=== PATIENT | male | born 1970 | race Two or more races ===

== ENCOUNTER 2024-09-25 04:40 | Emergency (ER) | payer MEDICAID, OTHER ==
[~2024-09-25] VITALS: Ht 167.6 cm; Wt 50.0 kg
[2024-09-25] MEDS ORDERED: GLUCAGON EMERG KIT 1mg/1ml ONE (04:44)
[2024-09-25 04:45] VITALS: BP 0/0; PULSE 0; RESP 0; TEMP 93.9; O2SAT 0
--- NOTE | 2024-09-25 04:53 | ED.PDOC ---
CPR-HPI HPI Comments 54 year old male was BIBA for the c/c of a Cardiac Arrest. Per EMS pt was at home with family when he experiencing a syncopal episode. EMS states that CPR started at 3:33am. Patient was found to hypoglycemic. ACLS protocols were continued by EMS in route to the emergency department. Pt arrived her at [facility] at 4:37am. ACLS protocols were continued on arrival to the emergency department. Chief Complaint: CPR Time Seen by MD: 04:46 Reviewed Notes: Nurses Notes, Technology Specialist Notes, Medications, Allergies Allergies: Coded Allergies: UNOBTAINABLE (Unverified , 09/25/24) UNRESPONSIVE Information Source: Emergency Med Personnel Mode of Arrival: EMS Timing: Hours Onset: Witnessed Available Hx: Unknown Inital rhythm: Undetermined Treatment: CPR, Epinephrine Response: No response Associated signs and symptoms: Unknown Vital Signs Vital Signs Date Time Temp Pulse Resp B/P (MAP) Pulse Ox O2 Delivery O2 Flow Rate FiO2 09/25/24 04:45 93.9 0 0 0/0 (0) 0 93.9 Physical Exam General: Patient is unresponsive HEENT: Pupils fixed, dilated, nonreactive. There is no corneal reflex. Cardiac: No heart sounds auscultated, no pulses palpated Abdomen: Abdomen is distended and rigid Respiratory: No spontaneous respirations, no breath sounds auscultated Neuro: GCS 3, patient is unresponsive to painful stimulus, Review of Systems: Unable to obtain due to patient unresponsive Past Medical History PAST MEDICAL HISTORY: [place] Was a procedure done? Was a procedure done?: No Differential Dx CPR Differential Diagnosis: Cardiopulmonary arrest, Electrolyte disorder, Heart Block, Myocardial Infarction, Pneumothorax, Respiratory Failure, Ruptured Aortic Aneurysm X-Ray, Labs, Meds, VS Vital Signs Date Time Temp Pulse Resp B/P (MAP) Pulse Ox O2 Delivery O2 Flow Rate FiO2 09/25/24 04:45 93.9 0 0 0/0 (0) 0 93.9 Time of 1ST Reevaluation: 04:43 Reevaluation 1ST: Unchanged Patient Education/Counseling: Pt Unresponsive Family Education/Counseling: No Family Present Departure 1 Departure Time of Disposition: 04:43 Impression: Primary Impression: Cardiac arrest Disposition: 20 Condition: Other Comments 54-year-old male arrived to the emergency department in cardiac arrest with over one hour of downtime and unsecured airway prior to arrival to the emergency department. Cardiac compressions were performed by staff in order to sustain blood flow. The patient was ventilated and oxygenated. The patient received appropriate ACLS measures and these were repeated as necessary throughout the resuscitation. CPR was performed under my direct supervision and guidance. See patient resuscitation status note for medications and times given. After discontinuation of resuscitation, I did not observe spontaneous breathing or appreciate heart sounds on auscultation. There was no palpable radial pulse. The patient did not respond to nail bed stimuli. I examined the patient and there was no pupillary response to light. Patient was pronounced . TOD: 0443 Critical Care Note Critical Care Time?: No Heart Score Heart Score: Heart Score Response (Comments) Value History N/A 0 EKG N/A 0 Age N/A 0 Risk Factors N/A 0 Troponin N/A 0 Total 0 Stability Stability form required: No I personally scribed for BEVERLEY MERCADO MD ([email or web address]) on 09/25/24 at 04:53. Electronically submitted by Jordy Chance ([email or web address]). BEVERLEY MERCADO MD Sep 25, 2024 04:53
--- NOTE | 2024-09-25 05:34 | RESUS ---
CODE BLUE ASSESSSMENT History of Events History of Events: Pt came in with manual CPR in progress. Per EMS, pt was found unresponsive by family at 0315 with bystander CPR initiated at 0333 by SO that arrived on scene. Initial rhythm was PEA but has remained in aystole throughout transport. Pt has IO to L proximal tibia; has received EPI x7 rounds, 10mL Calcium, 1 amp bicarb. Pt's blood sugar 38, has received 50g D10. Approx downtime 1hr 22mins; 1 hr 4mins of CPR performed. Initial Information Date: Sep 25, 2024 Time: 04:37 Location of Arrest: In Field Arrest Witnessed: Yes (by family) CPR started initial time: 03:33 CPR started by whom: Bystander (SO) Last seen well: 020 Pre-Hospital Care: ACLS Type of arrest: Cardiac, Respiratory, Adult, Unwitnessed Spontaneous Respirations: No Monitoring: ECG, Pulse Oximetry Crash Cart Opened and Supplies: Yes Airway Ventilation Breathing at Onset: Assisted Oxygen Delivery Method: Ambu-Bag Artificial Ventilation: Bag/Mask Comments: Pt not intubated during transport Circulation Circulation #1: Time: 04:37 Pulse Rate (adult): 0 Blood Pressure Systolic: 0 Blood Pressure Diastolic: 0 Temperature (Fahrenheit): 93.9 (F; rectal) Circulation Comment: No palpable pulse Circulation #2: Time: 04:39 Pulse Rate (adult): 0 Blood Pressure Systolic: 0 Blood Pressure Diastolic: 0 Circulation Comment: Asystole Circulation #3: Time: 04:41 Pulse Rate (adult): 0 Blood Pressure Systolic: 0 Blood Pressure Diastolic: 0 Circulation Comment: Asystole Circulation #4: Time: 04:43 Pulse Rate (adult): 0 Blood Pressure Systolic: 0 Blood Pressure Diastolic: 0 Circulation Comment: Asystole; TOD Medications & Response Medications and Responses : Medication Time: 04:39 ADULT Medications Given ADULT: Epinephrine 1 mg Route of Administration: IV Heart Rate: 0 EKG Rhythm: Asystole Blood Pressure Systolic: 0 Blood Pressure Diastolic: 0 Respiratory Rate: 0 EKG Rhythm: Asystole Nurses Notes [place] Coma Scale Eye Opening: None (1) [place] Coma Scale Verbal: None (1) [place] Coma Scale Motor: None (1) [place] Total: 3 Pupil Reaction: Non Reactive Bedside Blood Glucose: 123 Time Code Ended Time Code Ended: 04:43 Post Arrest Status: Outcome of code: Unsuccessful Patient pronounced by: Dr Young Time patient pronounced: 04:43 Code Team Present: Dr Young - ER ; Philippe Vuong, RN - ER Charge; Sepideh Brown RN - Learning And Development Analyst; Corazon Brown, RT; Fausto Muir, RN; Scar Brown, RN; Aretha Rivers, RN; Enoch Cerda, ERT; Juliana Rivers, ERT Sepideh Vanegas Sep 25, 2024 05:34
== END 2024-09-25 09:14 ==
LOC: EDBD 04:40 → ER 04:40
DX: I46.9 Cardiac arrest, cause unspecified (principal); I25.2 Old myocardial infarction; Z79.899 Other long term (current) drug therapy
CPT/HCPCS: 82947; 92950; 99285; J1610